=== PATIENT | female | born 1985 | race African-American/Black ===

== ENCOUNTER 2023-07-29 10:20 | Emergency (ER) | payer OTHER ==
[~2023-07-29] VITALS: Ht 162.6 cm; Wt 152.0 kg
[2023-07-29 10:27] VITALS: TEMP 98.4; O2SAT 98
[2023-07-29 11:03] VITALS: BP 176/96; PULSE 88; RESP 16
[2023-07-29] MEDS ORDERED: KETOROLAC 60MG/2ML VIAL IM STA (11:03)
[2023-07-29] MEDS ORDERED: CEPH500C2 MT (14:37)
[2023-07-29] MEDS ORDERED: T3 PO (14:37)
[2023-07-29] MEDS ORDERED: IBUP-2029 PO (14:37)
[2023-07-29] MEDS ORDERED: MUPI1OIN4 TP (14:37)
[2023-07-29] MEDS ORDERED: SULF1TAB48 MT (14:37)
[2023-07-30] MEDS ORDERED: P50 MT (14:54)
[2023-07-30] MEDS ORDERED: EPIN0.3P3 IM (14:54)
[2023-07-30] MEDS ORDERED: CLIN-194 MT (14:54)
[2023-07-30] MEDS ORDERED: DIPH-1207 MT (14:54)
[2023-07-30] MEDS ORDERED: FAMO-135 MT (14:54)
== END 2023-07-29 15:24 | disposition home or self-care (01) ==
LOC: ER 10:20
DX: J34.0 Abscess, furuncle and carbuncle of nose (principal); L01.00 Impetigo, unspecified
CPT/HCPCS: 99283; 81025; 96372; J1885

== ENCOUNTER 2023-07-30 13:59 | Emergency (ER) | payer OTHER ==
[~2023-07-30] VITALS: Ht 162.6 cm; Wt 153.0 kg
[~2023-07-30 13:59] MED LIST: CEPH500C2 MT; IBUP-2029 PO; MUPI1OIN4 TP; SULF1TAB48 MT; T3 PO
[2023-07-30 14:01] VITALS: O2SAT 100
[2023-07-30] MEDS ORDERED: DIPHENHYDRAMINE 50MG CAPSULE PO ONE (14:15)
[2023-07-30] MEDS ORDERED: DEXAMETHASONE 4MG/ML 1ML VIAL IM ONE (14:15)
[2023-07-30] MEDS ORDERED: DIPHENHYDRAMINE 50MG/ML VIAL IM ONE (14:45)
[2023-07-30] MEDS ORDERED: P50 MT (14:54)
[2023-07-30] MEDS ORDERED: EPIN0.3P3 IM (14:54)
[2023-07-30] MEDS ORDERED: DIPH-1207 MT (14:54)
[2023-07-30] MEDS ORDERED: CLIN-194 MT (14:54)
[2023-07-30] MEDS ORDERED: FAMO-135 MT (14:54)
[2023-07-30] MEDS ORDERED: FAMOTIDINE 20MG TABLET PO ONE (15:00)
[2023-07-30 16:30] LABS: BASOPHILS % 0.4 % (0.0-2.0); EOSINOPHILS % 1.2 % (0.0-5.0); HEMATOCRIT. 30.7 % (36.0-48.0); HEMOGLOBIN. 9.3 g/dL (12.0-16.0); LYMPHOCYTES % 24.7 % (20.0-50.0); MEAN CORPUSCULAR HEMOGLOBIN 20.4 pg (28.0-32.0); MEAN CORPUSCULAR HGB CONC 30.4 g/dL (31.0-37.0); MEAN CORPUSCULAR VOLUME 66.9 fL (81.0-99.0); MONOCYTES % 8.2 % (2.0-8.0); NEUTROPHILS % 65.5 % (40.0-76.0); PLATELET 457 x1000/uL (130-400); RED BLOOD CELL COUNT 4.59 mill/uL (4.2-5.4); RED CELL DISTRIBUTION WIDTH 18.5 % (11.6-14.6); WHITE BLOOD COUNT 10.3 x1000/uL (4.5-11.0)
[2023-07-30 16:34] LABS: DIFFERENTIAL COMMENT 1
[2023-07-30 16:35] LABS: ADD RBC MORPHOLOGY YES
[2023-07-30 16:56] LABS: ANISOCYTOSIS 2+; HYPOCHROMASIA 1+; MICROCYTOSIS 3+; PLATELET ESTIMATE INCREASED
[2023-07-30 19:26] VITALS: BP 152/94; PULSE 83; RESP 20; TEMP 98.3
== END 2023-07-30 19:27 | disposition home or self-care (01) ==
LOC: ER 13:59
DX: T78.40XA Allergy, unspecified, initial encounter (principal); J34.0 Abscess, furuncle and carbuncle of nose; Z79.899 Other long term (current) drug therapy; X58.XXXA Exposure to other specified factors, initial encounter
CPT/HCPCS: 99284; 81025; 85025; 36415; 96372; J1100; J1200; Q0163